=== PATIENT | female | born 1950 | race Caucasian/White ===

== ENCOUNTER 2016-08-30 10:27 | Outpatient (CLI) | payer MEDICARE, OTHER | END 2016-08-30 10:28 | disposition home or self-care (01) | DX: C73 Malignant neoplasm of thyroid gland (principal) ==

== ENCOUNTER 2016-10-23 08:13 | Outpatient (CLI) | payer MEDICARE, OTHER | END 2016-10-23 08:14 | disposition home or self-care (01) | LOC: DI 08:13 | PROVIDERS: ATTEND Internal Medicine | DX: R94.31 Abnormal electrocardiogram [ECG] [EKG] (principal) | CPT/HCPCS: 93306 ==

== ENCOUNTER 2017-09-17 08:47 | Outpatient (CLI) | payer MEDICARE, OTHER ==
--- NOTE | 2017-09-17 14:31 | DEXA Report ---
DEXA SCAN: 09/17/2017 CLINICAL INDICATION: Postmenopausal. TECHNIQUE: Dual energy x-ray absorptiometry (DXA) was performed on a [employer] system. Regions measured are the AP spine, femoral neck, and, if needed, forearm. COMPARISON: None. In accordance with the International Society for Clinical Densitometry (ISCD) guidelines, data from previous exams may be reanalyzed using current recommendations and techniques. This is done to allow a more accurate basis for comparison with the current study. FINDINGS The data for the lumbar spine is as follows: REGION BMD (g/cm/cm) T-SCORE Z-SCORE L1 0.999 -1.1 0.6 L2 0.920 -2.3 -0.6 L3 1.022 -1.5 0.2 L4 1.044 -1.3 0.4 L1-L4 0.999 -1.5 0.2 NOTE: All evaluable vertebrae are used for classification. The data for the hip is as follows: REGION BMD (g/cm/cm) T-SCORE Z-SCORE Neck 0.713 -2.3 -0.8 TOTAL 0.741 -2.1 -0.8 NOTE: The femoral neck or total proximal femur, whichever is lowest, is used for classification. IMPRESSION WHO CLASSIFICATION BASED ON THE INTERNATIONAL REFERENCE STANDARD IS OSTEOPENIA. FRACTURE RISK IS INCREASED. RECOMMENDATION: Patients with diagnosis of osteoporosis or osteopenia should have regular bone mineral density assessment. For those eligible for Medicare, routine testing is allowed once every 2 years. Testing frequency can be increased for patients who have rapidly progressing disease or for those who are receiving medical therapy to restore bone mass. COMMENT World Health Organization (WHO) definitions for osteoporosis and osteopenia: NORMAL BMD: T-score at 1.0 or higher, fracture risk is low. OSTEOPENIA BMD: T-score between 1.0 and -2.5, fracture risk is increased. OSTEOPOROSIS BMD: T-score at 2.5 or lower, fracture risk high. National Osteoporosis Foundation recommends: 1. Obtain adequate dietary calcium (at least 1200 mg per day) and vitamin D (400 -800 international units per day). 2. Participate, as appropriate, in regular weightbearing and muscle- strengthening exercise. 3. Avoid tobacco use and reduce alcohol and caffeine intake. 4. For more detailed information see the website at www.NOF.org. TD: 09/17/2017 10:45 LEONA
== END 2017-09-17 08:48 | disposition home or self-care (01) ==
LOC: DI 08:47
PROVIDERS: ATTEND Internal Medicine
DX: M81.0 Age-related osteoporosis without current pathological fracture (principal); M85.89 Other specified disorders of bone density and structure, multiple sites; Z78.0 Asymptomatic menopausal state
CPT/HCPCS: 77080

== ENCOUNTER 2017-10-03 15:30 | Outpatient (CLI) | payer MEDICARE, OTHER | END 2017-10-03 15:31 | disposition home or self-care (01) | LOC: LAB.R 15:30 | PROVIDERS: ATTEND Internal Medicine | DX: N30.00 Acute cystitis without hematuria (principal) | CPT/HCPCS: 87086 ==

== ENCOUNTER 2017-10-09 10:41 | Outpatient (CLI) | payer MEDICARE, OTHER ==
[2017-10-09 11:18] LABS: BASOPHILS % (AUTO) 0.7 %; EOSINOPHILS # (AUTO) 0.1 10^3/uL (0.0-0.7); EOSINOPHILS % (AUTO) 1.3 %; HGB - HEMOGLOBIN 13.1 g/dL (12.0-16.0); LYMPHOCYTES # (AUTO) 2.4 10^3/uL (1.5-3.5); LYMPHOCYTES % (AUTO) 46.1 %; MEAN CORPUSCULAR HEMOGLOBIN 31.4 pg (27.0-31.0); MEAN CORPUSCULAR HGB CONC 33.6 g/dL (32.0-36.0); MEAN CORPUSCULAR VOLUME 93.4 fL (81.0-99.0); MONOCYTES # (AUTO) 0.4 10^3/uL (0.0-1.0); MONOCYTES % (AUTO) 7.4 %; NEUTROPHILS # (AUTO) 2.3 10^3/uL (1.5-6.6); NEUTROPHILS % (AUTO) 44.5 %; PLT - PLATELET COUNT 355 10^3/uL (130-450); RED BLOOD COUNT 4.16 10^6/uL (4.20-5.40); RED CELL DISTRIBUTION WIDTH 12.4 % (12.0-15.0); WHITE BLOOD COUNT 5.3 x10^3/uL (4.8-10.8)
[2017-10-09 11:26] LABS: ALBUMIN 3.9 g/dL (3.2-5.5); ALBUMIN/GLOBULIN RATIO 1.1 (1.0-2.2); BILIRUBIN,TOTAL 0.7 mg/dL (0.2-1.0); CALCIUM 10.8 mg/dL (8.5-10.3); CREATININE 1.3 mg/dL (0.4-1.0); TOTAL PROTEIN 7.6 g/dL (6.7-8.2)
[2017-10-11 09:51] LABS: THYROGLOBULIN 0.3 ng/mL
== END 2017-10-09 10:42 | disposition home or self-care (01) ==
LOC: LAB 10:41
PROVIDERS: ATTEND Internal Medicine
DX: M81.0 Age-related osteoporosis without current pathological fracture (principal); C73 Malignant neoplasm of thyroid gland; E21.3 Hyperparathyroidism, unspecified; M81.8 Other osteoporosis without current pathological fracture; Z79.899 Other long term (current) drug therapy
CPT/HCPCS: 36415; 80053; 83970; 84432; 84443; 85025; 86800

== ENCOUNTER 2017-10-09 20:51 | Emergency (ER) | payer MEDICARE, OTHER ==
[2017-10-09 21:09] LABS: BILIRUBIN,URINE NEGATIVE (NEGATIVE); GLUCOSE, URINE (UA) NEGATIVE (NEGATIVE); KETONES,URINE (UA) NEGATIVE (NEGATIVE); LEUKOCYTE ESTERASE, URINE SMALL (NEGATIVE); NITRITE,URINE NEGATIVE (NEGATIVE); OCCULT BLOOD,URINE LARGE (NEGATIVE); PH,URINE 6.5 PH (5.0-7.5); PROTEIN,URINE NEGATIVE (NEGATIVE); UROBILINOGEN,URINE 0.2 (NORMAL) E.U./dL (NORMAL)
[2017-10-09 21:20] LABS: CLARITY,URINE CLOUDY (CLEAR)
[2017-10-09 21:22] LABS: BACTERIA,URINE None Seen /HPF (None Seen); RBC,URINE TNTC /HPF (0-5); SQUAMOUS EPITHELIAL CELL,UR RARE Squamous (<= Few)
[2017-10-09] MEDS ORDERED: ONDANSETRON 4 MG/2 ML VIAL IVP STA (21:23)
[2017-10-09] MEDS ORDERED: KETOROLAC 60 MG/2 ML VIAL IVP STA (21:23)
[2017-10-09] MEDS ORDERED: SODIUM CHLORIDE 0.9% 1,000 ML IV ONE (21:23)
--- NOTE | 2017-10-09 21:35 | ED Physician Documentation ---
PD HPI ABD PAIN - Stated complaint Stated Complaint: LT ABD/BACK PX - Chief complaint Chief Complaint: Abd Pain - History obtained from History obtained from: Patient, Family - History of Present Illness Timing - onset: How many days ago (4) Timing - details: Gradual onset, Still present Quality: Cramping, Aching Location: LLQ Radiation: Left flank Associated symptoms: Nausea, Diarrhea. No: Vomiting Similar symptoms before: Work up / diagnostics Recently seen: Clinic - Additional information Additional information: Patient is a 67 year old female who is presenting to the emergency department for abdominal pain. Patient states that her symptoms started on , (5 days prior). Patient was seen by her pmd and diagnosed with a uti. patient was started on bactrim. patient took a three day course. Patietn states that her symptoms returned today. patient had her blood drawn and came to the emergency department for evaluation. patient states that her pain is mainly in her left lower quadrant with radiation to her left flank. Review of Systems Constitutional: denies: Fever, Chills Eyes: reports: Reviewed and negative Ears: reports: Reviewed and negative Cardiac: denies: Chest pain / pressure, Palpitations GI: reports: Abdominal Pain, Nausea, Diarrhea. denies: Vomiting, Constipation : reports: Dysuria. denies: Frequency, Hesitancy Skin: denies: Rash, Lesions Neurologic: denies: Generalized weakness, Focal weakness, Numbness Immunocompromised: denies: Immunocompromised PD PAST MEDICAL HISTORY - Past Medical History Respiratory: None Endocrine/Autoimmune: HyPOthyroidism, Other Psych: None Musculoskeletal: None - Past Surgical History Past Surgical History: No - Present Medications Home Medications: Ambulatory Orders Medication Instructions Recorded Confirmed Calcitriol 0.5 mg PO TID 05/10/15 05/10/15 Calcium Citrate 200 mg PO DAILY 05/10/15 05/10/15 Levothyroxine [Synthroid] 112 mcg PO DAILY 05/10/15 05/10/15 Ketorolac [Toradol] 10 mg PO Q6H #14 tablet 10/09/17 Ondansetron Odt [Zofran] 4 mg TL Q6H PRN #14 tablet 10/09/17 Tamsulosin [Flomax] 0.4 mg PO DAILY #14 capsule 10/09/17 - Allergies Allergies/Adverse Reactions: Allergies Allergy/AdvReac Type Severity Reaction Status Date / Time azithromycin Allergy Unknown Verified 10/09/17 20:55 [From Zithromax Z-Kvng] - Social History Does the pt smoke?: No Smoking Status: Never smoker Does the pt drink ETOH?: No Does the pt have substance abuse?: No PD ED PE NORMAL - Vitals Vital signs reviewed: Yes - General General: Alert and oriented X 3 - HEENT HEENT: Atraumatic - Cardiac Cardiac: RRR - Respiratory Respiratory: No respiratory distress - Derm Derm: Normal color, Warm and dry - Extremities Extremities: No deformity - Neuro Neuro: Alert and oriented X 3 Eye Opening: Spontaneous Motor: Obeys Commands Verbal: Oriented GCS Score: 15 PD ED PE EXPANDED - HEENT HEENT: Dry mucous membranes - Abdomen Abdomen: Tender to palpation, LUQ, LLQ. No: Rebound, Guarding Results - Vitals Vitals: Vital Signs - 24 hr 10/09/17 10/09/17 20:53 22:37 Temperature 36.6 C 36.2 C L Heart Rate 86 91 Respiratory 16 20 Rate Blood Pressure 118/73 118/60 O2 Saturation 100 95 Oxygen O2 Source Room air - Labs Labs: Laboratory Tests 10/09/17 21:00 Urine Color YELLOW Urine Clarity CLOUDY Urine pH 6.5 Ur Specific [place] 1.015 Urine Protein NEGATIVE Urine Glucose (UA) NEGATIVE Urine Ketones NEGATIVE Urine Occult Blood LARGE H Urine Nitrite NEGATIVE Urine Bilirubin NEGATIVE Urine Urobilinogen 0.2 (NORMAL) Ur Leukocyte Esterase SMALL H Urine RBC TNTC H Urine WBC 6-10 H Ur Squamous Epith Cells RARE Squamous Urine Bacteria None Seen Ur Microscopic Review INDICATED Urine Culture Comments INDICATED - Rads (name of study) ct abd pelvis Radiology: Final report received (multiple renal stones bilaterally over ten each side with partially obstruction 4mm by 3mm stone at left uvj) PD MEDICAL DECISION MAKING - ED course Complexity details: reviewed old records, reviewed results, re-evaluated patient , considered differential, d/w patient, d/w family ED course: Patient was seen and examined at bedside. IV access was gained. patient's labs had been ordered earlier in the day. patient was started on a fluid bolus , toradol and zofran. Urine was collected and showed hematuria. Imaging was ordered. when patient returned from imaging she stated her pain had resolved. images were reviewed and there were multiple stones, at least ten in each kidney. there was one obstructing stone but it was less than 5mm. patient had no urinary tract infection and was able to tolerate PO. patient required no further inpatient work up at this time and was stable for discharge with outpatient follow up. - Sepsis Event Vital Signs: Vital Signs - 24 hr 10/09/17 10/09/17 20:53 22:37 Temperature 36.6 C 36.2 C L Heart Rate 86 91 Respiratory 16 20 Rate Blood Pressure 118/73 118/60 O2 Saturation 100 95 Oxygen O2 Source Room air Departure - Departure Disposition: 01 Home, Self Care Clinical Impression: Kidney stones Condition: Good Instructions: ED Stone Renal W Colic Follow-Up: [facility] [Provider Group] Prescriptions: Ketorolac [Toradol] 10 mg PO Q6H #14 tablet Ondansetron Odt [Zofran] 4 mg TL Q6H PRN #14 tablet PRN Reason: Nausea / Vomiting Tamsulosin [Flomax] 0.4 mg PO DAILY #14 capsule Comments: Your symptoms today are being caused by kidney stones. You do have multiple stones and it could be in part from your calcium supplements. You should follow up with your doctor and the urology group. 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 You should stay well hydrated. and can take ibuprofen (600mg and tylenol 650mg) as needed for pain. You should return to the emergency department for fevers, chills, vomiting, new worsening or uncontrollable symptoms. Discharge Date/Time: 10/09/17 23:15
--- NOTE | 2017-10-09 22:37 | CT Report ---
Procedure Date: 10/09/2017 Accession Number: [id number] / [id number] Procedure: CT - Abdomen/Pelvis W/O CPT Code: FULL RESULT: EXAM: CT ABDOMEN AND PELVIS (CT KUB) EXAM DATE: 10/09/2017 10:03 PM. CLINICAL HISTORY: Left flank pain. COMPARISONS: None. TECHNIQUE: Routine axial helical CT imaging was performed through the abdomen and pelvis without IV contrast. Reconstructions: Coronal and sagittal. In accordance with CT protocol optimization, one or more of the following dose reduction techniques were utilized for this exam: automated exposure control, adjustment of mA and/or KV based on patient size, or use of iterative reconstructive technique. FINDINGS: Lung Bases: Unremarkable. Right Kidney/Ureter: More than 10 nonobstructing stones in the kidney measuring up to 5 x 3 mm. No ureteral stone or obstructive uropathy seen. Left Kidney/Ureter: More than 10 nonobstructing stones in the kidney. The largest stones measure 4 x 3 mm and 6 x 2 mm. Moderately obstructing stone in the distal ureter at the level of the acetabulum measuring 4 x 3 mm, series 3 image 123. Other Solid Organs: Noncontrast images of the solid organs are grossly unremarkable. Gallbladder/Bile Ducts: Unremarkable. Peritoneal Cavity: No bowel obstruction seen. No diverticulitis. No free air or free fluid. No lymphadenopathy. Appendix appears normal. Pelvic Organs: No bladder stones or wall thickening. Noncontrast images of the visualized pelvic organs are unremarkable. Vasculature: Mild atherosclerosis. No aortic aneurysm. Other: None. IMPRESSION: 1. Moderately obstructing 4 x 3 mm stone in the distal left ureter at the level of the acetabulum. 2. More than 10 nonobstructing stones in each kidney. RADIA
[2017-10-09 22:38] VITALS: BP 118/60
[2017-10-09] MEDS ORDERED: levoFLOXacin 250 MG TABLET PO STA (22:52)
== END 2017-10-09 23:15 | disposition home or self-care (01) ==
LOC: ED 20:51
DX: N20.2 Calculus of kidney with calculus of ureter (principal); E03.9 Hypothyroidism, unspecified; M81.0 Age-related osteoporosis without current pathological fracture; C73 Malignant neoplasm of thyroid gland; E21.3 Hyperparathyroidism, unspecified; M81.8 Other osteoporosis without current pathological fracture; Z79.899 Other long term (current) drug therapy
CPT/HCPCS: 36415; 74176; 80053; 81001; 81003; 83690; 83970; 84432; 84443; 85025; 86800; 87086; 96361; 96374; 96375; 99283; 99284

== ENCOUNTER 2017-12-12 10:39 | Outpatient (CLI) | payer MEDICARE, OTHER ==
[2017-12-12 11:46] LABS: CALCIUM 8.5 mg/dL (8.5-10.3); CREATININE 0.9 mg/dL (0.4-1.0)
[2017-12-12 12:07] LABS: THYROID STIMULATING HORMONE 0.97 uIU/mL (0.34-5.60)
[2017-12-12 12:09] LABS: FREE T4 (FREE THYROXINE) 1.1 ng/dL (0.58-1.64)
[2017-12-16 12:16] LABS: THYROGLOBULIN 0.5 ng/mL
== END 2017-12-12 10:40 | disposition home or self-care (01) ==
LOC: LAB 10:39
PROVIDERS: ATTEND Internal Medicine Endocrinology, Diabetes & Metabolism
DX: C73 Malignant neoplasm of thyroid gland (principal); E89.0 Postprocedural hypothyroidism; E20.8 Other hypoparathyroidism
CPT/HCPCS: 36415; 80048; 82306; 83970; 84432; 84439; 84443; 86800

== ENCOUNTER 2018-02-20 08:11 | Outpatient (CLI) | payer MEDICARE, OTHER ==
[2018-02-20 09:21] LABS: CALCIUM 8.5 mg/dL (8.5-10.3); PHOSPHORUS 4.1 mg/dL (2.5-4.6); URIC ACID 4.8 mg/dL (2.6-7.2)
== END 2018-02-20 08:12 | disposition home or self-care (01) ==
LOC: LAB 08:11
PROVIDERS: ATTEND Physician Assistant Medical
DX: N20.0 Calculus of kidney (principal)
CPT/HCPCS: 36415; 80069; 84550

== ENCOUNTER 2018-05-15 10:54 | Outpatient (CLI) | payer MEDICARE, OTHER ==
[2018-05-15 11:32] LABS: CALCIUM 8.6 mg/dL (8.5-10.3); CREATININE 1.1 mg/dL (0.4-1.0)
[2018-05-15 11:53] LABS: THYROID STIMULATING HORMONE 3.09 uIU/mL (0.34-5.60)
[2018-05-15 11:55] LABS: FREE T4 (FREE THYROXINE) 1.13 ng/dL (0.58-1.64)
== END 2018-05-15 10:55 | disposition home or self-care (01) ==
LOC: LAB 10:54
PROVIDERS: ATTEND Internal Medicine Endocrinology, Diabetes & Metabolism
DX: C73 Malignant neoplasm of thyroid gland (principal); E20.8 Other hypoparathyroidism; E89.0 Postprocedural hypothyroidism
CPT/HCPCS: 36415; 80048; 82306; 83970; 84432; 84439; 84443; 86800

== ENCOUNTER 2018-10-06 14:49 | Outpatient (CLI) | payer MEDICARE, OTHER ==
[2018-10-06 18:17] LABS: ALBUMIN 4.1 g/dL (3.2-5.5); CALCIUM 8.6 mg/dL (8.5-10.3); CREATININE 0.9 mg/dL (0.4-1.0); MAGNESIUM 2.4 mg/dL (1.7-2.8); PHOSPHORUS 4.6 mg/dL (2.5-4.6)
[2018-10-06 18:26] LABS: THYROID STIMULATING HORMONE 2.6 uIU/mL (0.34-5.60)
[2018-10-06 18:30] LABS: FREE T4 (FREE THYROXINE) 1.01 ng/dL (0.58-1.64)
[2018-10-08 12:11] LABS: THYROGLOBULIN 0.4 ng/mL
== END 2018-10-06 14:50 | disposition home or self-care (01) ==
LOC: LAB.F 14:49
PROVIDERS: ATTEND Internal Medicine Endocrinology, Diabetes & Metabolism
DX: C73 Malignant neoplasm of thyroid gland (principal); E89.0 Postprocedural hypothyroidism; E20.8 Other hypoparathyroidism
CPT/HCPCS: 36415; 80048; 80069; 82306; 83735; 84432; 84439; 84443; 86800

== ENCOUNTER 2019-04-15 07:53 | Outpatient (CLI) | payer MEDICARE, OTHER ==
--- NOTE | 2019-04-15 11:36 | Mammography Report ---
Reason: ROUTINE MAMMO Procedure Date: 04/15/2019 Accession Number: [id number] / [id number] Procedure: MGS - Screening Mammo Dig Bilat CPT Code: Final Report FULL RESULT: EXAM: Screening Mammo Dig Bilat DATE: 04/15/2019 8:24 AM CLINICAL HISTORY: Routine screening. History of benign left surgery TECHNIQUE: (B) - Bilateral CC and MLO views were obtained. COMPARISON: 10/24/2015, 09/02/2013, 08/22/2011, 08/23/2010 and 07/27/2009 PARENCHYMAL PATTERN: (VD) - The breasts demonstrate extremely dense parenchyma bilaterally, limiting the sensitivity of mammography. FINDINGS: Right: No significant interval change. There are no suspicious masses, calcifications, or areas of distortion. Left: Stable postsurgical change. 3 punctate new calcifications in the 3:00 position 5 to 6 cm from the nipple for which magnification views are suggested. No new dominant mass or architectural distortion. IMPRESSION: Incomplete examination. BI-RADS category 0. Needs additional evaluation left breast by magnification views. Negative right breast. RECOMMENDATION: (ADDMAM) - Recommend additional mammographic views. Left breast BI-RADS CATEGORY: (0) - Incomplete Examination - need additional evaluation. STANDARD QUALIFYING STATEMENTS: 1. This examination was not reviewed with the aid of Computer-Aided Detection (CAD). 2. A negative or benign imaging report should not preclude biopsy if clinically suspicious findings are present. 3. Dense breasts may obscure an underlying neoplasm. 4. This examination was reviewed without the aid of 3D breast imaging (tomosynthesis).
== END 2019-04-15 07:54 | disposition home or self-care (01) ==
LOC: DI.S 07:53
PROVIDERS: ATTEND Registered Nurse
DX: Z12.31 Encounter for screening mammogram for malignant neoplasm of breast (principal)
CPT/HCPCS: 77067

== ENCOUNTER 2019-05-11 13:44 | Outpatient (CLI) | payer MEDICARE, OTHER ==
--- NOTE | 2019-05-11 14:51 | Mammography Report ---
Reason: ABN MAMMO - FT SPEC VIEWS Procedure Date: 05/11/2019 Accession Number: [id number] / [id number] Procedure: REMI - Diag Special Views Dig LT CPT Code: Final Report FULL RESULT: EXAM: Diag Special Views Dig LT DATE: 05/11/2019 2:35 PM CLINICAL HISTORY: Diagnostic examination. History of benign left breast biopsy. The patient is recalled from screening examination for finding of 3 punctate new calcifications in the 3:00 position of the left breast. TECHNIQUE: (L) - Left CC, spot magnified CC, LM, spot magnified LM views are obtained. COMPARISON: 04/15/2019 through 07/27/2009. PARENCHYMAL PATTERN: (D) - The breast(s) demonstrate(s) heterogeneously dense fibroglandular parenchyma. FINDINGS: The previously seen 3 punctate calcifications in the lateral left breast approximately 5.5 cm from the nipple on the cc projection show no associated architectural distortion or mass and are not definitively located on the LM projection, potentially 4.2 cm from the nipple in the lower breast, probably benign. There are no suspicious masses, calcifications, or areas of distortion. IMPRESSION: Probably Benign. BI-RADS category 3. RECOMMENDATION: (6MOS) - Recommend 6 month follow-up exam. Left breast. BI-RADS CATEGORY: (3) - Probably Benign. STANDARD QUALIFYING STATEMENTS: 1. This examination was not reviewed with the aid of Computer-Aided Detection (CAD). 2. A negative or benign imaging report should not preclude biopsy if clinically suspicious findings are present. 3. Dense breasts may obscure an underlying neoplasm. 4. This examination was reviewed with the aid of 3D breast imaging (tomosynthesis).
== END 2019-05-11 13:45 | disposition home or self-care (01) ==
LOC: DI 13:44
PROVIDERS: ATTEND Registered Nurse
DX: R92.1 Mammographic calcification found on diagnostic imaging of breast (principal)

== ENCOUNTER 2019-09-17 08:36 | Outpatient (CLI) | payer MEDICARE, OTHER ==
[2019-09-17 09:42] LABS: FREE T4 (FREE THYROXINE) 1.11 ng/dL (0.58-1.64)
[2019-09-17 09:46] LABS: TOTAL T3 0.76 ng/mL (0.87-1.78)
== END 2019-09-17 08:37 | disposition home or self-care (01) ==
LOC: LAB 08:36
PROVIDERS: ATTEND Internal Medicine Endocrinology, Diabetes & Metabolism
DX: E89.0 Postprocedural hypothyroidism (principal); E20.8 Other hypoparathyroidism
CPT/HCPCS: 36415; 81599; 84432; 84439; 84445; 84480; 86800

== ENCOUNTER 2019-12-31 14:23 | Outpatient (CLI) | payer MEDICARE, OTHER ==
--- NOTE | 2020-01-05 09:42 | Mammography Report ---
UNILATERAL LEFT DIGITAL DIAGNOSTIC MAMMOGRAM 3D/2D: 12/31/2019 CLINICAL: Patient returns for 6 month follow up on left breast for calcifications. Comparison is made to exams dated: 05/11/2019 mammogram, 10/24/2015 mammogram, and 04/15/2019 mammogra m - [facility]. The tissue of left breast is predominantly fatty. There is a 2 mm area of grouped punctate calcifications in the left breast at 4 o'clock middle depth. These are not significantly changed. No other significant masses or calcifications are seen in the breast. IMPRESSION: PROBABLY BENIGN The 2 mm area of grouped punctate calcifications in the left breast are probably benign. A follow-up mammogram in 6 months is recommended to demonstrate stability. This exam was interpreted at Station ID: [id number]. NOTE: For mammograms, a report in lay terms will be sent to the patient. Approximately 15% of breast malignancies will not be visualized mammographically. In the management of a palpable breast mass, a negative mammogram must not discourage biopsy of a clinically suspicious lesion. SUMMARY: Cumulative months of stability: 6. Recommend follow-up left breast diagnostic mammogram in 6 months t o demonstrate continued stability. The patient will be due for right breast screening mammogram at th e time of the follow-up exam. Electronically Signed By: Yandel barrett/humza:12/31/2019 16:40:42 ACR BI-RADS Category 3: Probably benign [id number] PARENCHYMAL PATTERN: (F) - The breast(s) demonstrate(s) diffuse fatty replacement. BI-RADS CATEGORY: (3) - 3 Mammogram [id number] 6 month follow-up LATERALITY: (B)
== END 2019-12-31 14:24 | disposition home or self-care (01) ==
LOC: DI 14:23
PROVIDERS: ATTEND Registered Nurse
DX: R92.2 Inconclusive mammogram (principal)

== ENCOUNTER 2020-04-25 10:08 | Outpatient (CLI) | payer MEDICARE, OTHER | END 2020-04-25 10:09 | disposition home or self-care (01) | LOC: COV 10:08 | PROVIDERS: ATTEND Family Medicine | DX: R05 Cough (principal); R06.02 Shortness of breath; R09.81 Nasal congestion; Z20.828 Contact with and (suspected) exposure to other viral communicable diseases ==

== ENCOUNTER 2020-08-18 11:29 | Outpatient (CLI) | payer MEDICARE, OTHER ==
[2020-08-18 15:46] LABS: ALBUMIN 4.4 g/dL (3.2-5.5); PHOSPHORUS 4.9 mg/dL (2.5-4.6); POTASSIUM 3.8 mmol/L (3.5-5.0)
== END 2020-08-18 11:30 | disposition home or self-care (01) ==
LOC: LAB.S 11:29
PROVIDERS: ATTEND Internal Medicine Endocrinology, Diabetes & Metabolism
DX: C73 Malignant neoplasm of thyroid gland (principal); E21.0 Primary hyperparathyroidism
CPT/HCPCS: 36415; 80069; 82306; 84432; 84443; 86800

== ENCOUNTER 2020-09-16 08:21 | Outpatient (CLI) | payer MEDICARE, OTHER ==
--- NOTE | 2020-09-16 11:07 | DEXA Report ---
PROCEDURE: Dexa Spine and/or Hip INDICATIONS: PRIMARY HYPERPARATHYROIDISM TECHNIQUE: Dual energy x-ray absorptiometry (DXA) was performed on a [employer] System. Regions measur ed are the AP Spine, femoral neck, and if needed forearm. COMPARISON: 09/17/2017. FINDINGS: Lumbar Spine: Bone Mineral Density 0.996 g/cm/cm,T score -1.5. There is interval 0.3% decrease in total lumbar s pine bone mineral density. Left Hip: Bone Mineral Density 0.736 g/cm/cm,T score -2.2. There is interval 0.7% decrease in left total hip b one mineral density. Left Femoral Neck: Bone Mineral Density 0.741 g/cm/cm, T score -2.1. (T score greater or equal to -1.0: NORMAL) (T score from -1.1 to -2.4: OSTEOPENIA) (T score less than or equal to -2.5 to: OSTEOPOROSIS) Impression: Osteopenia. Patients with diagnosis of osteoporosis or osteopenia should have regular bone mineral density assess ment. For those eligible for Medicare, routine testing is allowed once every 2 years. Testing frequ ency can be increased for patients who have rapidly progressing disease or for those who are receivin g medical therapy to restore bone mass. Reviewed by: Tom Hamilton MD on 09/16/2020 11:05 AM PDT Approved by: Tom Hamilton MD on 09/16/2020 11:05 AM PDT Station ID: [id number]
== END 2020-09-16 08:22 | disposition home or self-care (01) ==
LOC: DI 08:21
PROVIDERS: ATTEND Internal Medicine Endocrinology, Diabetes & Metabolism
DX: E21.0 Primary hyperparathyroidism (principal); M85.89 Other specified disorders of bone density and structure, multiple sites

== ENCOUNTER 2021-09-01 10:40 | Outpatient (CLI) | payer MEDICARE, OTHER ==
[2021-09-01 11:11] LABS: ALBUMIN 4.3 g/dL (3.2-5.5); CALCIUM 9.1 mg/dL (8.5-10.3); PHOSPHORUS 4.3 mg/dL (2.5-4.6); POTASSIUM 4.1 mmol/L (3.5-5.0)
[2021-09-01 11:28] LABS: THYROID STIMULATING HORMONE 3.99 uIU/mL (0.34-5.60)
== END 2021-09-01 10:41 | disposition home or self-care (01) ==
LOC: LAB 10:40
PROVIDERS: ATTEND Internal Medicine Endocrinology, Diabetes & Metabolism
DX: C73 Malignant neoplasm of thyroid gland (principal); E89.0 Postprocedural hypothyroidism; N20.0 Calculus of kidney; M81.0 Age-related osteoporosis without current pathological fracture
CPT/HCPCS: 36415; 80069; 82306; 83970; 84443; 86800

== ENCOUNTER 2022-08-28 09:32 | Outpatient (CLI) | payer MEDICARE, OTHER ==
[2022-08-28 15:51] LABS: THYROID STIMULATING HORMONE 0.58 uIU/mL (0.34-5.60)
[2022-08-28 15:53] LABS: FREE T4 (FREE THYROXINE) 1.37 ng/dL (0.58-1.64)
[2022-08-28 16:58] LABS: ALBUMIN 3.8 g/dL (3.2-5.5); CALCIUM 9.2 mg/dL (8.5-10.3); PHOSPHORUS 3.6 mg/dL (2.5-4.6); POTASSIUM 4.2 mmol/L (3.5-5.0)
[2022-08-29 03:10] LABS: VITAMIN D 25-HYDROXY 55.7 ng/mL (30.0-100.0)
[2022-08-29 18:08] LABS: THYROGLOBULIN ANTIBODY <1.0 IU/mL (0.0-0.9)
== END 2022-08-28 09:33 | disposition home or self-care (01) ==
LOC: LAB.S 09:32
PROVIDERS: ATTEND Internal Medicine Endocrinology, Diabetes & Metabolism
DX: E89.0 Postprocedural hypothyroidism (principal); E20.8 Other hypoparathyroidism
CPT/HCPCS: 36415; 80069; 82306; 83970; 84439; 84443; 86800

== ENCOUNTER 2022-09-13 14:01 | Outpatient (CLI) | payer MEDICARE, OTHER ==
--- NOTE | 2022-09-13 16:46 | DEXA Report ---
PROCEDURE: Dexa Spine and/or Hip INDICATIONS: OSTEOPOROSIS, THYROID CA TECHNIQUE: Dual energy x-ray absorptiometry (DXA) was performed on a [employer] System. Regions measur ed are the AP Spine, femoral neck, and if needed forearm. COMPARISON: None FINDINGS: Lumbar Spine: Bone Mineral Density 1.0 g/cm/cm,T score -1.5. Osteopenia Left Femoral Neck: Bone Mineral Density 0.8 g/cm/cm, T score -2.3. Osteopenia Impression: By WHO criteria, this patient has osteopenia of the lumbar spine and left femoral neck. Patients with diagnosis of osteoporosis or osteopenia should have regular bone mineral density assess ment. For those eligible for Medicare, routine testing is allowed once every 2 years. Testing frequ ency can be increased for patients who have rapidly progressing disease or for those who are receivin g medical therapy to restore bone mass. Reviewed by: Reji Shah MD on 09/13/2022 4:45 PM PDT Approved by: Reji Shah MD on 09/13/2022 4:45 PM PDT Station ID: [id number]
--- NOTE | 2022-09-15 08:45 | Ultrasound Report ---
PROCEDURE: Head or Neck Soft Tissue INDICATIONS: OSTEOPOROSIS, THYROID CA TECHNIQUE: Real-time scanning was performed of the thyroid gland, with image documentation. COMPARISON: None FINDINGS: Thyroid gland is absent. No mass or enlarged lymph nodes in thyroid bed. 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 No recurrent mass or enlar ged lymph nodes. ACR TI-RADS definitions and recommendations: TI-RADS 1 (benign): 0 points. FNA not needed. TI-RADS 2 (not suspicious): 2 points. FNA not needed. TI-RADS 3 (mildly suspicious): 3 points. "FNA if 2.5 cm or larger, follow up if 1.5 cm or larger (at 1, 3, and 5 years). TI-RADS 4 (moderately suspicious): 4-6 points. "FNA if 1.5 cm or larger, follow up if 1 cm or larger (at 1, 2, 3, and 5 years). TI-RADS 5 (highly suspicious): 7 points or more. "FNA if 1 cm or larger, follow up if 0.5 cm or larger (every year for 5 years). Reviewed by: Basia Street MD on 09/15/2022 8:44 AM PDT Approved by: Basia Street MD on 09/15/2022 8:44 AM PDT Station ID: [id number]
== END 2022-09-13 14:02 | disposition home or self-care (01) ==
LOC: DI 14:01
PROVIDERS: ATTEND Internal Medicine Endocrinology, Diabetes & Metabolism
DX: M85.89 Other specified disorders of bone density and structure, multiple sites (principal); E89.2 Postprocedural hypoparathyroidism; C73 Malignant neoplasm of thyroid gland

== ENCOUNTER 2023-01-09 10:11 | Outpatient (CLI) | payer MEDICARE, OTHER ==
[2023-01-09 14:44] LABS: BASOPHILS % (AUTO) 0.7 %; EOSINOPHILS % (AUTO) 0.7 %; HCT - HEMATOCRIT 40.1 % (37.0-47.0); HGB - HEMOGLOBIN 12.8 g/dL (12.0-16.0); LYMPHOCYTES # (AUTO) 2.1 10^3/uL (1.5-3.5); LYMPHOCYTES % (AUTO) 37.3 %; MEAN CORPUSCULAR HEMOGLOBIN 30.3 pg (27.0-31.0); MEAN CORPUSCULAR HGB CONC 31.9 g/dL (32.0-36.0); MEAN CORPUSCULAR VOLUME 94.8 fL (81.0-99.0); MEAN PLATELET VOLUME 10.2 fL (7.9-10.8); MONOCYTES # (AUTO) 0.5 10^3/uL (0.0-1.0); MONOCYTES % (AUTO) 8.7 %; NEUTROPHILS % (AUTO) 52.4 %; PLT - PLATELET COUNT 323 10^3/uL (130-450); RED BLOOD COUNT 4.23 10^6/uL (4.20-5.40); RED CELL DISTRIBUTION WIDTH 12.5 % (12.0-15.0); WHITE BLOOD COUNT 5.7 x10^3/uL (4.8-10.8)
[2023-01-09 15:48] LABS: ALBUMIN 4.1 g/dL (3.2-5.5); ALBUMIN/GLOBULIN RATIO 1.5 (1.0-2.2); ALKALINE PHOSPHATASE 67 IU/L (42-121); ALT ALANINE AMINOTRANSFERASE 16 IU/L (10-60); AST ASPARTATE AMINOTRANSFERASE 21 IU/L (10-42); BILIRUBIN,TOTAL 0.4 mg/dL (0.2-1.0); BUN - BLOOD UREA NITROGEN 19 mg/dL (6-20); CALCIUM 9.9 mg/dL (8.5-10.3); CARBON DIOXIDE - CO2 31 mmol/L (21-32); CHLORIDE 104 mmol/L (101-111); CHOL/HDL RATIO 3.1 (<4.4); CHOLESTEROL 233 mg/dL; CREATININE 1.1 mg/dL (0.6-1.3); GFR - MDRD 49 (>89); GLUCOSE 97 mg/dL (74-104); HDL CHOLESTEROL 74 mg/dL; LDL CHOLESTEROL,CALCULATED 106 mg/dL; LDL/HDL RATIO 1.4 (<4.4); POTASSIUM 3.9 mmol/L (3.5-4.5); SODIUM 140 mmol/L (135-145); TOTAL PROTEIN 6.8 g/dL (6.4-8.9); TRIGLYCERIDES 267 mg/dL (48-352); VLDL CHOLESTEROL 53 mg/dL
== END 2023-01-09 10:12 | disposition home or self-care (01) ==
LOC: LAB.S 10:11
PROVIDERS: ATTEND Registered Nurse
DX: Z13.228 Encounter for screening for other metabolic disorders (principal); Z13.220 Encounter for screening for lipoid disorders; Z13.0 Encounter for screening for diseases of the blood and blood-forming organs and certain disorders involving the immune mechanism
CPT/HCPCS: 36415; 80053; 80061; 83721; 85025

== ENCOUNTER 2023-01-28 10:45 | Outpatient (CLI) | payer MEDICARE, OTHER ==
--- NOTE | 2023-01-31 20:58 | SLEEP CARE CONSULTATION ---
Information from patient questionnaire entered by Edna Martinez. I have reviewed and concur with the information entered by Edna Martinez. This document represents the service I personally performed and the decisions made by me, Negrito Webber MD, [facility]. History of Present Illness Service Date and Time: 01/28/2023 1045 Reason for Visit: New patient Chief Complaint: reports: Unrefreshed sleep, Frequent awakenings at night, Other (MEEMORY LAPSE) Date of Onset: MEMORY LAPSE 4-6MONTHS AWAKENINGS 20YRS Usual bedtime: 9PM Time it takes to fall asleep: 5-10MIN Snores at night: No Observed to quit breathing while asleep: No Sleeps alone due to snoring: Yes Number of times waking at night: 1 Reasons for waking at night: reports: Bathroom, Other (UNKNOWN) Toss, Turn, or Twitch while sleeping: No Recalls having dreams: Yes Usually gets out of bed at: 5AM Feels refreshed in the morning: Yes Morning headache: No Sleepy or fatigued during the day: Yes Ever fallen asleep while driving: No Takes day naps: Yes Dreams during day naps: Yes Prior sleep studies: No Additional HPI information: I have the pleasure of seeing Ms. Singer along with her today regarding the possibility of her having obstructive sleep apnea. As you know, she is a 72 year old lady who complains of frequent awakenings, unrefreshed sleep, and memory loss. The patient tells me that she normally goes to bed around 9 pm, and it takes her approximately 5 - 10 minutes to fall asleep. She takes trazodone. She not been told that she snores loudly and irregularly at night. She has never been observed to stop breathing in her sleep. However, she sleeps alone. She can recall waking up on the average of 1 time during the night but has difficulty falling back asleep. Most of the time she wakes up b ecause of having to use the bathroom. She has never awakened because of her own snoring, choking, or having to gasp for air. There is not a lot of tossing and turning in her sleep. No somniloquy (sleep talking) or somnambulism (sleep walking). Generally, she can recall having dreams. In the morning she usually gets up out of the bed around 5 - 6 a.m. not feeling refreshed nor rested. She has headaches but they do not start in the morning. During the day she complains of feeling sleepy and fatigued. Her score on [place] Sleepiness Scale is 3 out of 24. She never has fallen asleep while driving nor has had any accident due to sleepiness. She usually takes 20-minute naps during the day. She reports having impaired concentration during the day. - Parasomnia Symptoms Ever been unable to move upon waking from sleep: No Walks in sleep: No Talks in sleep: No Ever acted out dreams in sleep: No Ever felt weak in the knees when startled or emotional: No Bothered by creepy, crawly, restless sensations in legs: No Problems with memory or concentration: No Subjective Initial [place] Sleepiness Scale score: 3 (01/25/23) Past Medical History Past Medical History: reports: Claustrophobia, Hypothyroidism, Other (MEDICATION TO REPLACE SURGICALLY REMOVED THYROID AND PARATHYROID GLANDS) Social History The patient's occupation is a RETIRED. Patient is and lives in [place]. Have you smoked in the past 12 months: No Alcohol use: No Caffeine use: No Family History Family history of sleep disordered breathing: No (UNKNOWN) Allergies and Home Medications Known drug allergies: Yes (AZITHROMYYCIN) Drug allergies reviewed: Yes Home medication list reviewed: Yes Allergy and home medication list: Allergies azithromycin [From Zithromax Z-Kvng] Allergy (Verified 01/25/23 10:44) Unknown Review of Systems Cardiovascular: denies: high blood pressure, palpitations, chest pain, irregular heart rate or pulse, leg or foot swelling, have to sleep sitting up, other Respiratory: denies: shortness of breath, wheeze, sputum production, chronic cough, other Gastrointestinal: denies: heartburn, difficulty swallowing, nausea, vomitting, diarrhea, abdominal pain, other Urinary: denies: incontinence, frequency, urgency, impotence, other Neurological: reports: headaches Psychiatric: denies: Attention Deficit Hyperactivity, anxiety, depression, mood disorder, claustrophobia, other Ear/Nose/Throat: reports: tonsillectomy, wisdom teeth removed Endocrine: reports: thyroid disease Musculoskeletal: reports: muscle pain or cramping Immunologic: denies: sneezing, rash, itching, allergies to food or environment, other Physical Exam Vital signs obtained and entered by: EDNA Caro MA Blood Pressure: 118/62 (LEFT ARM) Cuff size: regular Heart Rate: 63 O2 Saturation: 99 Height: 5 ft 4 in Weight: 136 lb 12.8 oz Body Mass Index: 23.4 BMI Classification: Normal Neck circumference: 13.25 Mood/affect: Darwin HEENT: No craniofacial malformation Nostrils: patent to airflow Turbinates: normal Septum: midline Mouth and throat: normal Soft palate: normal Hard palate: normal Uvula: normal Uvula visualization: 100% Mallampati Class I Tongue: normal in size Tonsils: absent bilaterally Chin and jaw: normal size and position Heart: regular rate and rhythm Lungs: clear bilaterally Extremities: no edema or clubbing Neurologic: intact Impression and Plan IMPRESSION: 1. Insomnia, involving sleep maintenance where she wakes up during the night and unable to fall back asleep. This may be due to excessive time spent in bed of 9 hours or more. In addition, she takes a nap during the day. When she lies awake during the night, she also compensates by getting out of bed later. I advise her to spend no more than 7.5 hours in bed at night because she takes a nap during the day. This means that if she goes to bed at 9 pm, she needs to get out of bed regularly at 4:30 am, regardless of whether she wakes up and stays up during the night or not. The fact that she is not sleepy during the day ([place] Sleepiness Scale score of 3) also confirms that she has been getting adequate sleep all along. Adequate sleep, no sleepy during the day. An in-laboratory polysomnography will be ordered to rule out sleep disrupting co nditions. Plan: 1. Schedule polysomnography to see if she has sleep disrupting conditions that could contribute to memory loss. 2. Maintain a regular wake up time and spend no more than 7.5 hours in bed at night because she naps for 20 minutes during the day. 3. Return for follow up after the sleep study. Follow up with Sleep Care in: 1-2 months Visit Type: In Office Other Participants: Spouse/Significant Other Time Spent with Patient (minutes): 15 Provider Statement: I spent 100% of the Face to Face Visit with the patient with greater than 50% spent counseling the patient and coordination of care.
[2023-01-31 21:00] VITALS: BP 118/62; O2SAT 99
== END 2023-01-28 10:46 | disposition home or self-care (01) ==
LOC: SC 10:45
PROVIDERS: ATTEND Internal Medicine Pulmonary Disease
DX: G47.00 Insomnia, unspecified (principal); G44.221 Chronic tension-type headache, intractable; R41.89 Other symptoms and signs involving cognitive functions and awareness; G47.8 Other sleep disorders
CPT/HCPCS: 99202; G0463; 99212

== ENCOUNTER 2023-02-24 19:46 | Outpatient (CLI) | payer MEDICARE, OTHER | END 2023-02-24 19:47 | disposition home or self-care (01) | LOC: SC 19:46 | PROVIDERS: ATTEND Internal Medicine Pulmonary Disease | DX: G47.00 Insomnia, unspecified (principal); G44.221 Chronic tension-type headache, intractable; R41.89 Other symptoms and signs involving cognitive functions and awareness; G47.8 Other sleep disorders | CPT/HCPCS: 95810 ==

== ENCOUNTER 2023-03-05 07:40 | Outpatient (CLI) | payer MEDICARE, OTHER ==
--- NOTE | 2023-03-05 12:01 | Mammography Report ---
BILATERAL DIGITAL SCREENING MAMMOGRAM 3D/2D: 03/05/2023 CLINICAL: Routine screening. Comparison is made to exams dated: 12/01/2021 mammogram, 12/31/2019 mammogram, 05/11/2019 mammogram, 03/29 mammogram, and 10/24/2015 mammogram - [facility]. Both breasts are heterogeneously dense, which may obscure small masses (category c / 51-75% glandular tissue). Right breast: There is a mass in the right breast lower inner quadrant at anterior depth. Left breast: There are calcifications in the left breast outer region at posterior depth seen on the craniocaudal view only. No other significant masses or calcifications are seen in either breast. IMPRESSION: INCOMPLETE: NEEDS ADDITIONAL IMAGING EVALUATION 1) Right breast anterior lower inner quadrant mass. Needs additional imaging evaluation. Finding may represent a lymph node. Recommend diagnostic right breast mammogram and ultrasound for further evalua tion. 2) Left breast posterior outer calcifications seen on CC view only. Needs additional imaging evaluati on. Recommend diagnostic left breast mammogram with spot magnifications views and ultrasound for furt her evaluation. Based on the Tyrer Cuzick model (a risk assessment model) the patients lifetime risk is 6.0% and her 10 year risk is 4.1%. According to the ACR, ACS, and NCCN guidelines, an annual breast MRI exam alexander g with mammogram is recommended if the patients lifetime risk is 20% or greater. This exam was interpreted at Station ID: [id number]. NOTE: For mammograms, a report in lay terms will be sent to the patient. Approximately 15% of breast malignancies will not be visualized mammographically. In the management of a palpable breast mass, a negative mammogram must not discourage biopsy of a clinically suspicious lesion. Electronically Signed By: Stacie Perez M.D., PH.D eb/:03/05/2023 09:02:03 ACR BI-RADS Category 0: Incomplete 3340F PARENCHYMAL PATTERN: (D) - The breast(s) demonstrate(s) heterogeneously dense fibroglandular parenchy ma. BI-RADS CATEGORY: (0) - 0 Mammo and [place] [id number] Immediate follow-up LATERALITY: (B)
== END 2023-03-05 07:41 | disposition home or self-care (01) ==
LOC: DI.S 07:40
PROVIDERS: ATTEND Registered Nurse
DX: Z12.31 Encounter for screening mammogram for malignant neoplasm of breast (principal); R92.1 Mammographic calcification found on diagnostic imaging of breast; N63.14 Unspecified lump in the right breast, lower inner quadrant; R92.333 Mammographic heterogeneous density, bilateral breasts

== ENCOUNTER 2023-03-11 15:56 | Outpatient (CLI) | payer MEDICARE, OTHER ==
--- NOTE | 2023-03-11 21:27 | SLEEP CARE CONSULTATION ---
Information from patient questionnaire entered by Edna Martinez. I have reviewed and concur with the information entered by Edna Martinez. This document represents the service I personally performed and the decisions made by me, Negrito Webber MD, [facility]. History of Present Illness Service Date and Time: 03/11/2023 1556 Current [place] Sleepiness Scale score: 3 (03/11/23) Additional HPI information: Ms. Singer was seen via video telemedicine ([facility]) for follow up of the sleep study she had on 02/24/23. The polysomnography showed that the patient had slightly reduced sleep efficiency due to prolonged awakening in the middle of the night. The sleep architecture was relatively normal considering the first-night effect. Respiratory monitoring showed no significant sleep disordered breathing (AHI = 2.8) associated with frequent arousals, oxyhemoglobin desaturation and mild hypoxia (cynthia oxygen saturation of 88%). The few respiratory events occurred mainly during supine REM sleep (supine AHI = 5.3; non-supine = 1.36). Snore was light to moderate in intensity. There was no significant periodic leg movement of sleep. Cardiac rhythm was normal sinus rhythm without significant arrhythmia. No abnormal behavior (parasomnia) observed during the night. The patient was informed of these findings. I explained to her that the sleep study was normal. Sleep Study - Results Type of Sleep Study: Polysomnography (COMPLETED 02/24/23) Allergies and Home Medications Drug allergies reviewed: Yes Home medication list reviewed: Yes Allergy and home medication list: Allergies azithromycin [From Zithromax Z-Kvng] Allergy (Verified 03/11/23 08:04) Unknown Review of Systems Review of systems same as previous: Yes Physical Exam Vital signs obtained and entered by: EDNA Caro MA Height: 5 ft 4.5 in (PER PT) Weight: 135 lb (PER PT) Body Mass Index: 22.8 BMI Classification: Normal Impression and Plan IMPRESSION: 1. Primary Snore (ICD-10 R06.83), light to moderate, but no significant sleep disordered breathing except when the patient slept supine. The patient is recommended to avoid sleeping supine. PLAN: 1. Return for a follow up on as needed basis. Follow up with Sleep Care in: as needed Visit Type: [facility]health [facility] Patient Location: Home Patient agrees and consents to this telehealth visit type: Yes Patient agrees to have their insurance billed: Yes Time Spent with Patient (minutes): 15 Provider Statement: I spent 100% of the Telehealth Video Call with the patient with greater than 50% spent counseling the patient and coordination of care.
== END 2023-03-11 15:57 | disposition home or self-care (01) ==
LOC: SC 15:56
PROVIDERS: ATTEND Internal Medicine Pulmonary Disease
DX: R06.83 Snoring (principal)

== ENCOUNTER 2023-03-25 10:03 | Outpatient (CLI) | payer MEDICARE, OTHER ==
--- NOTE | 2023-03-26 15:31 | Mammography Report ---
BILATERAL DIGITAL DIAGNOSTIC MAMMOGRAM 3D/2D: 03/25/2023 CLINICAL: Patient returns today to evaluate a focal asymmetry in the right breast and magnification v iews of microcalcifications in the left breast. Comparison is made to exams dated: 03/05/2023 mammogram, 12/01/2021 mammogram, 12/31/2019 mammogram, 05/11 mammogram, 04/15/2019 mammogram, and 10/24/2015 mammogram - [facility]. Both breasts are heterogeneously dense, which may obscure small masses (category c / 51-75% glandular tissue). There is a 0.6 cm oval equal density mass in the right breast at 5 o'clock anterior depth. This is s een in additional views. This is more prominent. There are grouped coarse punctate calcifications in the left breast at 4 o'clock posterior depth. No other significant masses or calcifications are seen in either breast. IMPRESSION: INCOMPLETE: NEEDS ADDITIONAL IMAGING EVALUATION The grouped coarse punctate calcifications in the left breast at 4 o'clock posterior depth are probab ly benign. Follow up left mammogram in 6 months is recommended. The 0.6 cm oval equal density mass in the right breast at 5 o'clock anterior depth is indeterminate. An ultrasound is recommended for further evaluation and is scheduled to immediately follow this exam ination. Based on the Tyrer Cuzick model (a risk assessment model) the patients lifetime risk is 6.0% and her 10 year risk is 4.1%. According to the ACR, ACS, and NCCN guidelines, an annual breast MRI exam alexander g with mammogram is recommended if the patients lifetime risk is 20% or greater. This exam was interpreted at Station ID: [id number]. NOTE: For mammograms, a report in lay terms will be sent to the patient. Approximately 15% of breast malignancies will not be visualized mammographically. In the management of a palpable breast mass, a negative mammogram must not discourage biopsy of a clinically suspicious lesion. Electronically Signed By: Primitivo Dunham M.D. aty/:03/25/2023 11:08:10 ACR BI-RADS Category 0: Incomplete 3340F PARENCHYMAL PATTERN: (D) - The breast(s) demonstrate(s) heterogeneously dense fibroglandular leonila hardwick. BI-RADS CATEGORY: (0) - 0 Ultrasound [id number] Immediate follow-up LATERALITY: (R)
--- NOTE | 2023-03-26 15:31 | Ultrasound Report ---
LIMITED ULTRASOUND OF RIGHT BREAST: 03/25/2023 CLINICAL: Patient returns today to evaluate a focal asymmetry in the right breast. Comparison is made to exams dated: 03/25/2023 mammogram, 03/05/2023 mammogram, 12/01/2021 mammogram, mammogram, 04/15/2019 mammogram, and 10/24/2015 mammogram - [facility]. Real-time and continuous wave Doppler ultrasound of the right breast 3-6 o'clock region were performe d. No significant abnormalities were seen sonographically in the right breast. IMPRESSION: PROBABLY BENIGN There is no abnormality seen in the right breast to correspond with the mammography finding in the an terior depth in the lower inner quadrant. This is probably benign. A follow-up right mammogram with possible ultrasound in 6 months is recommended to demonstrate stabil ity. Also, a follow up left mammogram in 6 months is recommended to document stability of a probably benign group of calcifications in the left breast. Findings and recommendations were conveyed to the patient during today's evaluation. This exam was interpreted at Station ID: [id number]. Electronically Signed By: Primitivo Dunham M.D. aty/:03/25/2023 14:56:06 Ultrasound BI-RADS: 3 Probably benign BI-RADS CATEGORY: (3) - 3 Mammo and US [id number] 6 month follow-up LATERALITY: (B)
== END 2023-03-25 10:04 | disposition home or self-care (01) ==
LOC: DI 10:03
PROVIDERS: ATTEND Registered Nurse
DX: R92.8 Other abnormal and inconclusive findings on diagnostic imaging of breast (principal); R92.333 Mammographic heterogeneous density, bilateral breasts

== ENCOUNTER 2023-05-20 07:48 | Outpatient (CLI) | payer MEDICARE, OTHER ==
[2023-05-20 15:02] LABS: ALBUMIN 4.3 g/dL (3.2-5.5); CALCIUM 8.9 mg/dL (8.5-10.3); CREATININE 0.9 mg/dL (0.6-1.3); PHOSPHORUS 3.8 mg/dL (2.5-5.0); POTASSIUM 3.6 mmol/L (3.5-4.5)
[2023-05-20 15:36] LABS: THYROID STIMULATING HORMONE 1.62 uIU/mL (0.34-5.60)
== END 2023-05-20 07:49 | disposition home or self-care (01) ==
LOC: LAB.S 07:48
PROVIDERS: ATTEND Internal Medicine Endocrinology, Diabetes & Metabolism
DX: E89.0 Postprocedural hypothyroidism (principal); E20.89 Other specified hypoparathyroidism
CPT/HCPCS: 36415; 80069; 82306; 84439; 84443

== ENCOUNTER 2024-01-08 07:14 | Outpatient (CLI) | payer MEDICARE ==
[2024-01-08 15:36] LABS: THYROID STIMULATING HORMONE 0.46 uIU/mL (0.34-5.60)
[2024-01-08 15:44] LABS: ALBUMIN 4.1 g/dL (3.2-5.5)
[2024-01-08 15:50] LABS: CALCIUM 9.1 mg/dL (8.5-10.3); PHOSPHORUS 3.7 mg/dL (2.5-5.0); POTASSIUM 3.9 mmol/L (3.5-4.5)
== END 2024-01-08 07:15 | disposition home or self-care (01) ==
LOC: LAB.S 07:14
PROVIDERS: ATTEND Internal Medicine Endocrinology, Diabetes & Metabolism
DX: E89.0 Postprocedural hypothyroidism (principal); E20.89 Other specified hypoparathyroidism
CPT/HCPCS: 36415; 80069; 82306; 84439; 84443